=== PATIENT | female | born 1985 ===

== ENCOUNTER 2019-03-05 17:53 | Emergency (ER) | payer SELFPAY ==
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
[2019-03-05 18:16] VITALS: BP 154/107
== END 2019-03-05 18:20 ==
LOC: ER 18:01
DX: F19.920 Other psychoactive substance use, unspecified with intoxication, uncomplicated (principal)
CPT/HCPCS: 99281

== ENCOUNTER → 2019-03-05 | Outpatient (REF) | LOC: LAB 19:59 | PROVIDERS: ATTEND Nurse Practitioner | DX: Z02.83 Encounter for blood-alcohol and blood-drug test (principal) | CPT/HCPCS: 99001 ==